=== PATIENT | female | born 1995 | race Caucasian/White ===

== ENCOUNTER 2016-12-27 19:54 | Inpatient (IN) | payer BC, OTHER ==
[2016-12-27] MEDS ORDERED: MORPHINE SULFATE 4 MG/ML SYRINGE IV PRN (22:11)
[2016-12-27] MEDS ORDERED: ACETAMINOPHEN TAB 325 MG TAB PO PRN (22:11)
[2016-12-27] MEDS ORDERED: NALOXONE 0.4 MG/ML 1 ML VIAL IV PRN (22:11)
[2016-12-27] MEDS ORDERED: ONDANSETRON 4 MG/2 ML VIAL IVP PRN (22:11)
[2016-12-27] MEDS ORDERED: HEPARIN SODIUM,PORCINE/D5W PMX 25,000 UNIT in DEXTROSE/WATER 1 500ML.BAG IV ONE (22:17)
[2016-12-27] MEDS ORDERED: PHYTONADIONE ORAL 5 MG/5 ML ORAL.SYRG PO STA (22:17)
[2016-12-27] MEDS ORDERED: HEPARIN SODIUM,PORCINE 5,000 UNIT/ML 1 ML VIAL IV STA (22:17)
[2016-12-27 22:29] LABS: Basophils % (A) 1 %; CH 26.9; Eosinophils # (A) 0.3 k/uL (0-0.7); Eosinophils % (A) 3 %; HCT 33.4 % (34.0-46.0); HDW 3.13; HGB 11.3 gm/dL (11.4-16.0); Luc # (Auto) 0.14; Luc % (Auto) 2; Lymphocytes % (A) 22 %; MCH 27.7 pg (25.0-35.0); MCHC 33.9 g/dL (31.0-37.0); MCV 81.8 fL (80.0-100.0); Monocytes # (A) 0.7 k/uL (0-1.0); Monocytes % (A) 8 %; Neutrophils % (A) 65 %; RBC 4.08 m/uL (3.80-5.40); RDW 14.5 % (11.5-15.5); WBC 9.2 k/uL (3.8-10.6); WBC (Perox) 8.66
--- NOTE | 2016-12-27 22:33 | ED ---
General Adult HPI - General Chief complaint: Recheck/Abnormal Lab/Rx Stated complaint: blood clots in legs Time Seen by Provider: 12/27/16 20:33 Source: patient, family, RN notes reviewed Mode of arrival: ambulatory Limitations: no limitations - History of Present Illness Initial comments: 21-year-old female presenting with chief complaint of left lower extremity DVT. Patient was diagnosed with a DVT on November 26. She is having delivered on November 12. Patient was started on Coumadin and bridged with Lovenox at the time of diagnosis and November 26. Patient has been taking Coumadin for the past one month. Over the last 3 days she reported worsening pain in the left lower extremity. Patient presented to an outside hospital for evaluation. At that time she was noted to have an INR of 3.6 and ultrasound today showed left lower extremity DVT which has propagated over the past month. Patient denies fever or chills. Denies chest pain or shortness breath. She has no additional past medical history. Patient left outside hospital AGAINST MEDICAL ADVICE for evaluation at a larger hospital. - Related Data Home Medications Medication Instructions Recorded Confirmed Warfarin [Coumadin] 5 mg PO MOWEFR 12/27/16 12/27/16 Warfarin [Coumadin] 10 mg PO SUTUTHSA 12/27/16 12/27/16 Allergies Allergy/AdvReac Type Severity Reaction Status Date / Time No Known Allergies Allergy Verified 12/27/16 20:24 Review of Systems ROS Statement: Those systems with pertinent positive or pertinent negative responses have been documented in the HPI. ROS Other: All systems not noted in ROS Statement are negative. Respiratory: Denies: dyspnea Cardiovascular: Denies: chest pain, dyspnea on exertion Past Medical History Past Medical History: No Reported History History of Any Multi-Drug Resistant Organisms: None Reported Past Surgical History: No Surgical Hx Reported Past Psychological History: No Psychological Hx Reported Smoking Status: Never smoker Past Alcohol Use History: None Reported Past Drug Use History: None Reported General Exam Limitations: no limitations General appearance: alert, in no apparent distress Head exam: Present: atraumatic, normocephalic Eye exam: Present: normal appearance, PERRL ENT exam: Present: normal exam Respiratory exam: Present: normal lung sounds bilaterally. Absent: respiratory distress Cardiovascular Exam: Present: regular rate, normal rhythm GI/Abdominal exam: Present: soft. Absent: distended, tenderness Extremities exam: Present: calf tenderness, other (Left lower extremity is swollen, distal pulses are intact, there is no pitting edema. Right lower extremity is grossly normal.) Neurological exam: Present: alert, oriented X3 Psychiatric exam: Present: normal affect, depressed Skin exam: Present: warm, dry Course Vital Signs 12/27/16 20:13 Temperature 98.3 F Pulse Rate 104 H Respiratory 18 Rate Blood Pressure 132/80 O2 Sat by Pulse 98 Oximetry Medical Decision Making - Medical Decision Making 21-year-old female presenting with left lower extremity pain and swelling. Patient has been diagnosed with a DVT and according to available medical records this DVT has worsened while on Coumadin. Patient's INR from outside hospital where she was earlier today was 3.6. INR obtained in the emergency department this evening is pending. Ultrasound results have been loaded into her system. CBC, BMP, urine test, and PT/INR are pending at the time of this dictation. Case is discussed with hematology Dr. Mondragon, and given her failure on Coumadin and , the patient's INR of 3.6 she will be reversed with 5 mg of by mouth vitamin K and the patient will be started on a heparin drip. She will be admitted for both hematology and vascular surgery evaluation. Diagnosis: Left lower extremity DVT, failed Coumadin - Lab Data Result diagrams: 12/27/16 22:17 Lab Results 12/27/16 12/27/16 Range/Units 22:17 22:17 WBC 9.2 (3.8-10.6) k/uL RBC 4.08 (3.80-5.40) m/uL Hgb 11.3 L (11.4-16.0) gm/dL Hct 33.4 L (34.0-46.0) % MCV 81.8 (80.0-100.0) fL MCH 27.7 (25.0-35.0) pg MCHC 33.9 (31.0-37.0) g/dL RDW 14.5 (11.5-15.5) % Plt Count 544 H (150-450) k/uL Neutrophils % 65 % Lymphocytes % 22 % Monocytes % 8 % Eosinophils % 3 % Basophils % 1 % Neutrophils # 6.0 (1.3-7.7) k/uL Lymphocytes # 2.0 (1.0-4.8) k/uL Monocytes # 0.7 (0-1.0) k/uL Eosinophils # 0.3 (0-0.7) k/uL Basophils # 0.0 (0-0.2) k/uL PT 33.0 H (9.0-12.0) sec INR 3.4 (<1.1) APTT 38.8 H (22.0-30.0) sec Disposition Clinical Impression: DVT (deep venous thrombosis) Disposition: ADMITTED IP TO THIS [facility] Condition: Stable Referrals: Nonstaff,Physician [Primary Care Provider] - 1-2 days Decision to Admit Reason: Admit from EC Decision Date: 12/27/16 Decision Time: 22:39
[2016-12-27 22:37] LABS: INR 3.4 (<1.1); Partial Thromboplastin Time 38.8 sec (22.0-30.0)
[2016-12-27 22:51] LABS: Anion Gap 14 mmol/L; Blood Urea Nitrogen 12 mg/dL (7-17); Calcium 9.8 mg/dL (8.4-10.2); Carbon Dioxide 24 mmol/L (22-30); Chloride 106 mmol/L (98-107); Glucose 98 mg/dL (74-99); Non-African American GFR(MDRD) >60 (>60 ml/min/1.73 sqM); Potassium 4.6 mmol/L (3.5-5.1); Sodium 144 mmol/L (137-145)
[2016-12-27 23:19] LABS: Appearance,Urine Cloudy (Clear); Bacteria,Urine Rare /hpf; Bilirubin,Urine Negative (Negative); Glucose,Urine (UA) Negative (Negative); Ketones,Urine Negative (Negative); Leukocyte Esterase,Urine Moderate (Negative); Mucus,Urine Occasional /hpf; Nitrite,Urine Negative (Negative); Particle Count 5612; Protein,Urine Trace (Negative); RBC,Urine 63 /hpf (0-5); Specific Gravity,Urine 1.026 (1.001-1.035); Squamous Epithelial Cell,Urine 6 /hpf (0-4); UA Billing (MACRO vs. MICRO) MICRO; WBC,Urine 13 /hpf (0-5)
[2016-12-27] MEDS ORDERED: RX INFO: IV CONTRAST WAS GIVEN 1 EACH MISC MISCELLANE PRN (23:50)
[2016-12-27] MEDS ORDERED: ALPRAZolam 0.25 MG TAB PO PRN (23:55)
[2016-12-27] MEDS ORDERED: TEMAZEPAM 15 MG CAP PO PRN (23:57)
[2016-12-28 00:50] VITALS: BMI 24.7
--- NOTE | 2016-12-28 02:15 | CT ---
EXAM: CT Angiography Chest With Intravenous Contrast CLINICAL HISTORY: Rule out pulmonary embolus TECHNIQUE: Axial computed tomographic angiography images of the chest with intravenous contrast using pulmonary embolism protocol. CTDI is 0.17, 10. 84, 54.20, 13.84 mGy and DLP is 410 mGy-cm. This CT exam was performed using one or more of the following dose reduction techniques: automated exposure control, adjustment of the mA and/or kV according to patient size, and/or use of iterative reconstruction technique. MIP reconstructed images were created and reviewed. COMPARISON: No relevant prior studies available. FINDINGS: Pulmonary arteries: No evidence of pulmonary embolus. Aorta: No acute findings. No thoracic aortic aneurysm. Lungs: Unremarkable. No mass. No consolidation. Pleural space: Unremarkable. No significant effusion. No pneumothorax. Heart: Unremarkable. No cardiomegaly. No significant pericardial effusion. No evidence of RV dysfunction. Mediastinum: Ill-defined soft tissue density within anterior mediastinum likely representing residual thymic tissue. Bones/joints: No acute fracture. No dislocation. Soft tissues: Unremarkable. Lymph nodes: Unremarkable. No enlarged lymph nodes. IMPRESSION: No evidence of pulmonary embolus.
--- NOTE | 2016-12-28 02:26 | XR ---
EXAM: XR Chest, 1 View CLINICAL HISTORY: Chest pain TECHNIQUE: Frontal view of the chest. COMPARISON: No relevant prior studies available. FINDINGS: Lungs: Unremarkable. No consolidation. Pleural space: Unremarkable. No pneumothorax. Heart: Unremarkable. No cardiomegaly. Mediastinum: Unremarkable. Bones/joints: Unremarkable. IMPRESSION: Normal chest x-ray.
[2016-12-28 06:10] LABS: Basophils % (A) 0 %; CH 26.7; CHCM 32.2; Eosinophils # (A) 0.3 k/uL (0-0.7); Eosinophils % (A) 4 %; HCT 31.8 % (34.0-46.0); HDW 3.03; HGB 10.5 gm/dL (11.4-16.0); Hypochromasia Slight; Luc # (Auto) 0.17; Luc % (Auto) 3; Lymphocytes # (A) 2.4 k/uL (1.0-4.8); Lymphocytes % (A) 36 %; MCH 27.4 pg (25.0-35.0); MCV 83.1 fL (80.0-100.0); Mean Platelet Volume 7.1; Monocytes # (A) 0.6 k/uL (0-1.0); Monocytes % (A) 8 %; Neutrophils # (A) 3.3 k/uL (1.3-7.7); Neutrophils % (A) 49 %; RBC 3.83 m/uL (3.80-5.40); RDW 14.7 % (11.5-15.5); WBC 6.8 k/uL (3.8-10.6); WBC (Perox) 6.39
[2016-12-28 06:20] LABS: Anion Gap 12 mmol/L; Blood Urea Nitrogen 11 mg/dL (7-17); Calcium 8.9 mg/dL (8.4-10.2); Carbon Dioxide 26 mmol/L (22-30); Chloride 106 mmol/L (98-107); Glucose 110 mg/dL (74-99); Non-African American GFR(MDRD) >60 (>60 ml/min/1.73 sqM); Potassium 3.9 mmol/L (3.5-5.1); Sodium 144 mmol/L (137-145)
[2016-12-28] MEDS ORDERED: HEPARIN SODIUM,PORCINE 5,000 UNIT/ML 1 ML VIAL IV PRN (06:29)
[2016-12-28] MEDS ORDERED: HEPARIN SODIUM,PORCINE/D5W PMX 25,000 UNIT in DEXTROSE/WATER 1 500ML.BAG IV SCH (06:29)
[2016-12-28] MEDS ORDERED: PANTOPRAZOLE 40 MG TABLET PO SCH (07:30)
[2016-12-28 08:37] VITALS: RESP 16; TEMP 97.8
--- NOTE | 2016-12-28 08:41 | P.GSCN ---
History of Present Illness History of present illness: 21- pain in the left leg in the left leg pain and left leg painye pending of pain in the left leg It was complaining of pain in the left legoomar-old white female this patient had a baby delivered November 12 he developed the left leg pain she was transferred to [facility] inflate patient had ultrasound of the leg and she was put on Coumadin, and Lovenox, En came last night to the emergency room history of r pain in the left leg at that time her INR was 3.6 and has been put on heparin Medical history no history of diabetes hypertension Family history no family history of DVT On examination neck is supple no bruit appreciated Chest clear auscultation first and second sound normal Abdomen soft nontender Vascular examination femoral dorsal pedis pulses are present no vascular compromise tenderness noted. Plan is we will repeat his ultrasound of the left leg and recommend IVELISSE bruner We will review the ultrasound of the left leg CT of the chest was negative for PE follow with you thank you Past Medical History Past Medical History: Deep Vein Thrombosis (DVT) Additional Past Medical History / Comment(s): 11/12/2016 patient delivered daughter. no complications during and delivery. baby is healthy. History of Any Multi-Drug Resistant Organisms: None Reported Past Surgical History: No Surgical Hx Reported Past Anesthesia/Blood Transfusion Reactions: No Reported Reaction Past Psychological History: No Psychological Hx Reported Smoking Status: Never smoker Past Alcohol Use History: None Reported Past Drug Use History: None Reported - Past Family History Father Family Medical History: No Reported History Medications and Allergies Home Medications Medication Instructions Recorded Confirmed Type Warfarin [Coumadin] 5 mg PO MOWEFR 12/27/16 12/28/16 History Warfarin [Coumadin] 10 mg PO SUTUTHSA 12/27/16 12/28/16 History Allergies Allergy/AdvReac Type Severity Reaction Status Date / Time No Known Allergies Allergy Verified 12/27/16 20:24 Surgical - Exam Vital Signs Temp Pulse Resp BP Pulse Ox 98.3 F 104 H 18 132/80 98 12/27/16 20:13 12/27/16 20:13 12/27/16 20:13 12/27/16 20:13 12/27/16 20:13 Results - Labs 12/28/16 05:25 12/28/16 05:25 Abnormal Lab Results - Last 24 Hours (Table) 0712/27/16 12/27/16 Range/Units 22:17 22:17 22:17 Hgb 11.3 L (11.4-16.0) gm/dL Hct 33.4 L (34.0-46.0) % Plt Count 544 H (150-450) k/uL PT 33.0 H (9.0-12.0) sec APTT 38.8 H (22.0-30.0) sec D-Dimer 1.20 H (<0.60) mg/L FEU Glucose (74-99) mg/dL Urine Appearance (Clear) Urine Protein (Negative) Urine Blood (Negative) Ur Leukocyte Esterase (Negative) Urine RBC (0-5) /hpf Urine WBC (0-5) /hpf Ur Squamous Epith Cells (0-4) /hpf Urine Bacteria (None) /hpf Urine Mucus (None) /hpf 12/27/16 12/28/16 12/28/16 Range/Units 22:19 05:25 05:25 Hgb 10.5 L (11.4-16.0) gm/dL Hct 31.8 L (34.0-46.0) % Plt Count 468 H (150-450) k/uL PT (9.0-12.0) sec APTT (22.0-30.0) sec D-Dimer (<0.60) mg/L FEU Glucose 110 H (74-99) mg/dL Urine Appearance Cloudy H (Clear) Urine Protein Trace H (Negative) Urine Blood Moderate H (Negative) Ur Leukocyte Esterase Moderate H (Negative) Urine RBC 63 H (0-5) /hpf Urine WBC 13 H (0-5) /hpf Ur Squamous Epith Cells 6 H (0-4) /hpf Urine Bacteria Rare H (None) /hpf Urine Mucus Occasional H (None) /hpf 12/28/16 Range/Units 05:25 Hgb (11.4-16.0) gm/dL Hct (34.0-46.0) % Plt Count (150-450) k/uL PT (9.0-12.0) sec APTT 81.5 H (22.0-30.0) sec D-Dimer (<0.60) mg/L FEU Glucose (74-99) mg/dL Urine Appearance (Clear) Urine Protein (Negative) Urine Blood (Negative) Ur Leukocyte Esterase (Negative) Urine RBC (0-5) /hpf Urine WBC (0-5) /hpf Ur Squamous Epith Cells (0-4) /hpf Urine Bacteria (None) /hpf Urine Mucus (None) /hpf Diabetes panel 12/27/16 12/28/16 Range/Units 22:17 05:25 Sodium 144 144 (137-145) mmol/L Potassium 4.6 3.9 (3.5-5.1) mmol/L Chloride 106 106 (98-107) mmol/L Carbon Dioxide 24 26 (22-30) mmol/L BUN 12 11 (7-17) mg/dL Creatinine 0.60 0.60 (0.52-1.04) mg/dL Glucose 98 110 H (74-99) mg/dL Calcium 9.8 8.9 (8.4-10.2) mg/dL Calcium panel 12/27/16 12/28/16 Range/Units 22:17 05:25 Calcium 9.8 8.9 (8.4-10.2) mg/dL Pituitary panel 12/27/16 12/28/16 Range/Units 22:17 05:25 Sodium 144 144 (137-145) mmol/L Potassium 4.6 3.9 (3.5-5.1) mmol/L Chloride 106 106 (98-107) mmol/L Carbon Dioxide 24 26 (22-30) mmol/L BUN 12 11 (7-17) mg/dL Creatinine 0.60 0.60 (0.52-1.04) mg/dL Glucose 98 110 H (74-99) mg/dL Calcium 9.8 8.9 (8.4-10.2) mg/dL Adrenal panel 12/27/16 12/28/16 Range/Units 22:17 05:25 Sodium 144 144 (137-145) mmol/L Potassium 4.6 3.9 (3.5-5.1) mmol/L Chloride 106 106 (98-107) mmol/L Carbon Dioxide 24 26 (22-30) mmol/L BUN 12 11 (7-17) mg/dL Creatinine 0.60 0.60 (0.52-1.04) mg/dL Glucose 98 110 H (74-99) mg/dL Calcium 9.8 8.9 (8.4-10.2) mg/dL
--- NOTE | 2016-12-28 08:57 | CT ---
EXAMINATION TYPE: CT abdomen pelvis wo con DATE OF EXAM: 12/28/2016 COMPARISON: NONE INDICATION: Failed Coumadin treatment DLP: 804 mGycm, Automated exposure control for dose reduction was used. CONTRAST: 0 mL of Omnipaque 300. Study performed without Oral Contrast TECHNIQUE: Axial images were obtained from above the diaphragm to the pubic rami in the axial plane a t 5 mm thick sections. Reconstructed images are reviewed on the computer in the coronal plane. Lack oral contrast prevents evaluation for venous thrombosis. FINDINGS: Limited CT sections are obtained the lung bases. The lung bases are clear. CT ABDOMEN: Liver: Normal Spleen: Normal Pancreas: Normal Adrenal glands: The adrenal glands are normal. Gallbladder: Normal Kidneys: No masses are evident. No hydronephrosis is present. No cysts are present. No renal stone s are identified. Aorta: Normal Inferior vena cava: Normal. CT PELVIS: Loops of bowel within the abdomen and pelvis are normal. Studies without oral contrast. Moderate fecal retention may be present. Appendix: Normal as visualized. Urinary bladder: Normal. There is a calcification posterior lateral to the right aspect of the urinar y bladder. Phlebolith is favored within the differential. No hydroureter on the right is identified. No renal stones on the right are evident. Genitourinary structures: Uterus is normal. Adnexal regions are clear. Some follicles on the ovaries are likely present. Osseous structures: No suspicious lytic or sclerotic lesions. IMPRESSIONS: 1. Unremarkable CT abdomen pelvis without contrast. 2. Lack of intravenous contrast prevents evaluation of thrombus within the vascular systems.
--- NOTE | 2016-12-28 09:53 | US ---
EXAMINATION TYPE: US venous doppler duplex LE DATE OF EXAM: 12/28/2016 9:19 AM COMPARISON: Outside exam 12/27/2016 CLINICAL HISTORY: 21-year-old female evaluate for DVT. SIDE PERFORMED: Bilateral TECHNIQUE: The lower extremity deep venous system is examined utilizing real time linear array sonog kb with graded compression, doppler sonography and color-flow sonography. FINDINGS: VESSELS IMAGED: External Iliac Vein (EIV) Common Femoral Vein Deep Femoral Vein Greater Saphenous Vein * Femoral Vein Popliteal Vein Small Saphenous Vein * Proximal Calf Veins (* superficial vessels) Right Leg: Negative for DVT Left Leg: Internet Marketing Strategist notes: Positive for DVT Left EIV through Distal Popliteal vein. The provided images show extensive venous thrombus extending from the external iliac vein down throug h the distal popliteal vein. This appears occlusive from the mid femoral vein down through the visual ized popliteal vein. Occlusive thrombus also appears to be present within the deep femoral vein. Nono cclusive thrombus is present from the external iliac vein down through the upper superficial femoral vein. There may be some progression in nonocclusive thrombus within the common femoral vein as compar ed to the outside exam. IMPRESSION: 1. No evidence for DVT within the right lower extremity from the groin to the upper calf. 2. Extensive DVT within the left lower extremity extending from the external iliac vein down through the lower popliteal vein. Occlusive DVT involves the deep femoral vein as well as the mid superficial femoral vein down through the popliteal vein.
[2016-12-28 11:19] VITALS: BP 112/56; PULSE 68
--- NOTE | 2016-12-28 11:27 | P.CONS ---
History of Present Illness - Reason for Consult Consult date: 12/28/16 Deep vein thrombosis. Possible failure of anticoagulation - History of Present Illness Patient is a 21-year-old lady, with no significant past medical history. She had full-term delivery, on 11/12/2016 which was uneventful. About 2 weeks after that, she developed pain and swelling in the left lower extremity. She was evaluated at [facility] in [place], [place], and was transferred to [facility] in [place]. She was diagnosed with DVT in the left lower extremity, which according to her, was extensive. The actual report of that is not available. The patient was on Coumadin with Lovenox overlap. According to her and her partner, the swelling didn't diminish. She has been having her INR monitored at her local hospital. According to the patient, she has had no subtherapeutic values. In fact some days ago, INR was 8 for which she received vitamin K. About 4 days ago, she developed recurrent swelling and progressive pain in the left lower extremity. This became intractable, leading her to go back to her hospital in [place]. She had repeat Doppler done, which according to the patient showed progression. Again the actual report is not available. She was therefore transferred here for further management. She denies any prior history of venous or arterial thrombosis, or miscarriages. There is no family history of the same either Case was discussed extensively with the emergency room physician. It was recommended that the patient be admitted on the IV heparin. Consult was placed for further evaluation. Review of Systems Constitutional: Denies chills, Denies fever Eyes: denies blurred vision, denies pain Ears: deny: decreased hearing, ear discharge, earache, tinnitus Ears, nose, mouth and throat: Denies headache, Denies sore throat Cardiovascular: Denies chest pain, Denies shortness of breath Respiratory: Denies cough Gastrointestinal: Denies abdominal pain, Denies diarrhea, Denies nausea, Denies vomiting Genitourinary: Denies dysuria, Denies hematuria Menstruation: Reports as per HPI Musculoskeletal: Reports as per HPI (Recurrent swelling and pain left lower extremity), Denies myalgias Integumentary: Denies pruritus, Denies rash Neurological: Denies numbness, Denies weakness Psychiatric: Reports anxiety Endocrine: Denies fatigue, Denies weight change Hematologic/Lymphatic: Reports as per HPI Past Medical History Past Medical History: Deep Vein Thrombosis (DVT) Additional Past Medical History / Comment(s): 11/12/2016 patient delivered daughter. no complications during and delivery. baby is healthy. History of Any Multi-Drug Resistant Organisms: None Reported Past Surgical History: No Surgical Hx Reported Past Anesthesia/Blood Transfusion Reactions: No Reported Reaction Past Psychological History: No Psychological Hx Reported Smoking Status: Never smoker Past Alcohol Use History: None Reported Past Drug Use History: None Reported - Past Family History Father Family Medical History: No Reported History Medications and Allergies Home Medications Medication Instructions Recorded Confirmed Type Warfarin [Coumadin] 5 mg PO MOWEFR 12/27/16 12/28/16 History Warfarin [Coumadin] 10 mg PO SUTUTHSA 12/27/16 12/28/16 History Allergies Allergy/AdvReac Type Severity Reaction Status Date / Time No Known Allergies Allergy Verified 12/27/16 20:24 Physical Exam Vitals: Vital Signs Temp Pulse Pulse Resp BP BP Pulse Ox 12/28/16 08:00 97.8 F 64 16 110/76 97 12/28/16 04:00 97.9 F 84 18 98/59 97 12/28/16 00:45 98.0 F 94 18 107/55 97 12/27/16 22:43 98.7 F 100 16 122/79 97 12/27/16 20:13 98.3 F 104 H 18 132/80 98 Intake and Output 12/27/16 12/28/16 12/28/16 22:59 06:59 14:59 Intake Total 162 0 Balance 162 0 Intake: IV 162 Heparin Sodium,Porcine/ 162 D5w Pmx 25,000 unit In Dextrose/Water 1 500ml. bag @ Titrate IV .Q0M ONE Rx#:[id number] Oral 0 Other: Weight 76.204 kg 75.5 kg - Constitutional General appearance: no acute distress - EENT Eyes: EOMI, PERRLA ENT: hearing grossly normal, normal oropharynx - Neck Neck: no lymphadenopathy Thyroid: bilateral: normal size - Respiratory Respiratory: bilateral: CTA - Cardiovascular Rhythm: regular Heart sounds: normal: S1, S2 - Gastrointestinal General gastrointestinal: normal bowel sounds, soft - Integumentary Integumentary: normal - Neurologic Neurologic: CNII-XII intact - Musculoskeletal Left lower extremity swelling, compared to the right. Musculoskeletal: strength equal bilaterally - Psychiatric Psychiatric: A&O x's 3, appropriate affect Results CBC & Chem 7: 12/28/16 05:25 12/28/16 05:25 Labs: Abnormal Lab Results - Last 24 Hours (Table) 12/27/16 12/27/16 12/27/16 Range/Units 22:17 22:17 22:17 Hgb 11.3 L (11.4-16.0) gm/dL Hct 33.4 L (34.0-46.0) % Plt Count 544 H (150-450) k/uL PT 33.0 H (9.0-12.0) sec APTT 38.8 H (22.0-30.0) sec D-Dimer 1.20 H (<0.60) mg/L FEU Glucose (74-99) mg/dL Urine Appearance (Clear) Urine Protein (Negative) Urine Blood (Negative) Ur Leukocyte Esterase (Negative) Urine RBC (0-5) /hpf Urine WBC (0-5) /hpf Ur Squamous Epith Cells (0-4) /hpf Urine Bacteria (None) /hpf Urine Mucus (None) /hpf 12/27/16 12/28/16 12/28/16 Range/Units 22:19 05:25 05:25 Hgb 10.5 L (11.4-16.0) gm/dL Hct 31.8 L (34.0-46.0) % Plt Count 468 H (150-450) k/uL PT (9.0-12.0) sec APTT (22.0-30.0) sec D-Dimer (<0.60) mg/L FEU Glucose 110 H (74-99) mg/dL Urine Appearance Cloudy H (Clear) Urine Protein Trace H (Negative) Urine Blood Moderate H (Negative) Ur Leukocyte Esterase Moderate H (Negative) Urine RBC 63 H (0-5) /hpf Urine WBC 13 H (0-5) /hpf Ur Squamous Epith Cells 6 H (0-4) /hpf Urine Bacteria Rare H (None) /hpf Urine Mucus Occasional H (None) /hpf 12/28/16 Range/Units 05:25 Hgb (11.4-16.0) gm/dL Hct (34.0-46.0) % Plt Count (150-450) k/uL PT (9.0-12.0) sec APTT 81.5 H (22.0-30.0) sec D-Dimer (<0.60) mg/L FEU Glucose (74-99) mg/dL Urine Appearance (Clear) Urine Protein (Negative) Urine Blood (Negative) Ur Leukocyte Esterase (Negative) Urine RBC (0-5) /hpf Urine WBC (0-5) /hpf Ur Squamous Epith Cells (0-4) /hpf Urine Bacteria (None) /hpf Urine Mucus (None) /hpf CT scan - chest: report reviewed CT scan - pelvis: report reviewed US - abdomen: report reviewed Venous US: report reviewed Assessment and Plan (1) DVT (deep venous thrombosis) Narrative/Plan: The patient had a recent diagnosis of deep vein thrombosis. As noted, she has no personal or family history of thrombosis prior to that. Her event is considered appropriate 1, occurring about 2 weeks after her . Based on her symptoms, and available information, the concern is for progression of thrombus while on Coumadin. Her case was discussed extensively with the ER physician. It is possible, that the patient may have had intermittent subtherapeutic INRs, but all documented INRs are therapeutic or actually supratherapeutic. On admission INR was 3.6. Reports of the Dopplers from [place], as well as from [place], [place] were requested. I would recommend continuation of IV heparin, to those reports available. Once available, they will be completed. If there is suspicion for progression, then we would have to resume that the patient has failure of antibiotic regulation on Coumadin, based on the available information. In that situation, would recommend change of treatment to one of the newer direct factor inhibitors. As her clot is provoked, a limited period of anticoagulation would be recommended. Normally this would be 3 months. Over given the extent of her clot, I would not stop anticoagulation, before risk assessment with repeat Dopplers and d-dimer. Generally, for first episode of provoked DVT, hypercoagulable workup is not recommended. Given her circumstances, it would be reasonable to discuss this. We will follow-up on this as an outpatient Vascular surgery consult was recommended. The patient has been seen by vascular, and at this time, surgical intervention is not felt to be indicated Status: Acute
== END 2016-12-28 16:02 | disposition short-term general hospital (02) | DRG 301 ==
LOC: EC 19:54 → 6SEL 22:11
PROVIDERS: ADMIT Hospitalist; ATTEND Hospitalist
DX: I82.412 Acute embolism and thrombosis of left femoral vein (principal); I82.432 Acute embolism and thrombosis of left popliteal vein; Z79.01 Long term (current) use of anticoagulants
CPT/HCPCS: 36415; 71010; 71275; 74176; 80048; 81001; 81025; 85025; 85379; 85610; 85730; 93970; 99285